=== PATIENT | male | born 1955 | race Caucasian/White ===

== ENCOUNTER → 2019-04-16 | Outpatient (CLI) | payer OTHER ==
[~2019-04-16] MED LIST: PROHANCE 279.3MG/ML 15ML VIAL (A9576) As Ordered ONE; PROHANCE 279.3MG/ML 5ML VIAL (A9576) As Ordered ONE
--- NOTE | 2019-04-17 12:07 | REP ---
MULTI-PARAMETRIC PROSTATE MRI WITHOUT AND WITH IV GADOLINIUM: HISTORY: Elevated PSA COMPARISONS: No comparison study. TECHNIQUE: Using a phased array surface coil, small field of view imaging was acquired using T2-weighted scans in the axial, coronal, and sagittal imaging planes. Small field of view diffusion-weighted sequences are acquired. Small field of view axial T1-weighted scans are acquired dynamically before and after the intravenous administration of 18 mL of ProHance. Imaging is reviewed on the [employer] computer aided detection system. PROSTATE MRI FINDINGS: There is no evidence of skeletal metastatic disease or pelvic adenopathy. Prostate glandular dimensions are 5.8 x 4.9 x 5.3 cm. Calculated glandular volume is 70.56 mL . There is moderate nodular hypertrophy of the central gland. There are several regions of interest drawn within the prostate gland. These are analyzed and transmitted to the [employer] system for consideration of ultrasound/MR fusion guided prostate needle biopsy procedure. Lesion #1 is in the left mid anterior transition zone with a calculated volume of 0.27 mL and dimensions of 1.0 x 0.5 x 0.7 cm. It is a discrete homogeneous low T2 signal and intensity focus with no observable reduction in ADC and a type 2 enhancement curve. Clinically significant cancer is felt to be equivocal. Lesion #2 is in the right base anterior transition zone with dimensions of 1.4 x 1.2 x 1.0 cm, 0.85 mL volume, discrete low T2 signal intensity focus with note of evidence of restricted diffusion. Type 1 enhancement curve. Clinically significant cancer is equivocal. Lesion #3 is in the left base posterior transition zone and left base medial peripheral zone. This is a discrete low T2 signal intensity focus with no reduction in ADC, type 2 enhancement curve, equivocal suspicion for clinically significant cancer. Its dimensions are 1.5 x 1.1 x 0.7 cm, calculated volume 0.80 mL . Lesion #4 is in the right base posterior transition zone and right base medial peripheral zone. This is a discrete homogeneous low T2 signal intensity focus with no reduction in ADC, and a type 2 enhancement curve, and equivocal suspicion for clinically significant cancer. It measures 1.4 x 1.4 x 1.0 cm, calculated volume 1.13 mL. IMPRESSION: Multiparametric prostate MRI study with four targets identified and submitted for consideration of fusion directed needle biopsy. Electronically Signed by Anthony Fink MD 04/17/2019 07:20 P
== END ==
LOC: M RAD 13:50
PROVIDERS: ATTEND Specialist
DX: R97.20 Elevated prostate specific antigen [PSA] (principal)
CPT/HCPCS: 72197; A9576